=== PATIENT | female | born 1965 | race Caucasian/White ===

== ENCOUNTER 2016-09-16 22:01 | Day surgery (SDCO) | payer OTHER ==
[2016-09-16 23:11] LABS: BASOPHIL 0.4 % (0-2); EOSINOPHIL 1.4 % (0-5); HCT 40.8 % (37.0-47.0); HGB 14.1 g/dl (12.5-16.0); LYMPHOCYTE 30.1 % (15-48); MCH 33.7 pg (25.0-31.0); MCHC 34.6 g/dL (32.0-36.0); MCV 97.6 fL (78.0-100.0); MONOCYTE 4.1 % (0-12); MPV 11.7 fL (6.0-9.5); PLT 238 K/uL (150-400); RBC 4.18 M/uL (4.20-5.40)
[2016-09-16 23:20] LABS: INR 0.96 (0.9-1.2); PROTHROMBIN TIME 12.4 SECONDS (11.7-14.0); PTT 27.5 SECONDS (23.2-31.4)
[2016-09-16 23:22] LABS: D-DIMER 0.58 ug/mLFEU (0.00-0.41)
[2016-09-16 23:27] LABS: ALBUMIN 4.4 g/dL (3.5-5.0); BILIRUBIN - TOTAL 0.4 mg/dL (0.1-1.0); CREATININE 1.2 mg/dL (0.5-1.0); GLOBULIN (CALCULATION) 2.6 g/dL (2.2-4.2); MAGNESIUM 1.95 mg/dL (1.40-2.10); POTASSIUM 3.7 mmol/L (3.5-5.1)
[2016-09-16 23:30] LABS: CKMB 1.46 ng/mL (0.97-4.94); MYOGLOBIN 45 ng/mL (26-65); PRO-BNP 9 pg/mL (0-125); TROPONIN T < 0.010 ng/mL
[2016-09-17 03:26] LABS: CKMB 1.33 ng/mL (0.97-4.94); TROPONIN T < 0.010 ng/mL
[2016-09-17] MEDS ORDERED: SYNTHROID125 MCG PO (14:31)
[2016-09-17] MEDS ORDERED: NITROQUIK SL0.4 MG SL (14:32)
[2016-09-17] MEDS ORDERED: VITAMIN D50000 UNIT PO (14:32)
[2016-09-17] MEDS ORDERED: CYTOMEL25 MCG PO (14:33)
== END 2016-09-17 12:25 | disposition home or self-care (01) ==
LOC: FER 22:01 → FICU 09-17 03:50
PROVIDERS: Emergency Medicine Emergency Medical Services; ADMIT Internal Medicine
DX: R07.9 Chest pain, unspecified (principal); M79.7 Fibromyalgia; M17.12 Unilateral primary osteoarthritis, left knee; E03.9 Hypothyroidism, unspecified; Z90.89 Acquired absence of other organs; Z90.5 Acquired absence of kidney; Z98.1 Arthrodesis status; Z98.51 Tubal ligation status; Z88.1 Allergy status to other antibiotic agents; Z82.49 Family history of ischemic heart disease and other diseases of the circulatory system; Z79.899 Other long term (current) drug therapy; Z98.890 Other specified postprocedural states
CPT/HCPCS: 36415; 71010; 71275; 80053; 80061; 82550; 82553; 83690; 83735; 83874; 83880; 84484; 85025; 85379; 85610; 85730; 93005; 96372; G0378; J1885; J2270; J2405; Q9967

== ENCOUNTER 2020-09-19 14:40 | Emergency (ER) | payer OTHER, MEDICARE ==
[~2020-09-19 14:40] MED LIST: BENTYL10 MG PO; CYCLOBENZAPRINE10 MG PO; CYTOMEL25 MCG PO; NITROQUIK SL0.4 MG SL; SYNTHROID125 MCG PO; VITAMIN D50000 UNIT PO; ZOFRAN4 MG PO
[2020-09-19 15:33] LABS: BILIRUBIN NEGATIVE (NEGATIVE); BLOOD NEGATIVE Ery/uL (NEGATIVE); CLARITY CLEAR (CLEAR); COLOR YELLOW (YELLOW); GLUCOSE (U) 2+ mg/dL (NORMAL); LEUKOCYTES NEGATIVE Leu/uL (NEGATIVE); NITRITE NEGATIVE (NEGATIVE); PROTEIN NEGATIVE (NEGATIVE); SPECIFIC GRAVITY >=1.030 (1.001-1.030); UROBILINOGEN 0.2 mg/dL (0.2-1.0); pH 5.5 (5.0-9.0)
[2020-09-19 16:03] LABS: BASOPHIL 0.6 % (0-2); EOSINOPHIL 2.5 % (0-5); HCT 40.8 % (37.0-47.0); HGB 13.9 g/dl (12.5-16.0); LYMPHOCYTE 29.9 % (15-48); MCH 30.9 pg (25.0-31.0); MCHC 34.1 g/dL (32.0-36.0); MCV 90.7 fL (78.0-100.0); MPV 11.9 fL (6.0-9.5); NEUTROPHIL 61.7 % (41-80); NRBC 0; PLT 192 K/uL (150-400); RDW 12.7 % (11.5-14.0); WBC 6.4 K/uL (4.0-10.5)
[2020-09-19 16:37] LABS: CREATININE 0.81 mg/dL (0.51-0.95); POTASSIUM 4.2 mmol/L (3.5-5.1)
[2020-09-19] MEDS ORDERED: ANTIVERT25 MG PO (17:11)
== END 2020-09-19 17:20 | disposition home or self-care (01) ==
LOC: FER 14:40
PROVIDERS: Nurse Practitioner Family
DX: H81.10 Benign paroxysmal vertigo, unspecified ear (principal); E11.9 Type 2 diabetes mellitus without complications; Z90.5 Acquired absence of kidney; Z88.1 Allergy status to other antibiotic agents; Z79.84 Long term (current) use of oral hypoglycemic drugs
CPT/HCPCS: 36415; 80048; 81003; 85025; 99284

== ENCOUNTER 2021-01-18 15:27 | Emergency (ER) | payer OTHER, MEDICARE ==
[~2021-01-18 15:27] MED LIST changes: +ANTIVERT25 MG PO
[2021-01-18 16:18] LABS: EOSINOPHIL 2.1 % (0-5); HCT 42.3 % (37.0-47.0); HGB 14.4 g/dl (12.5-16.0); LYMPHOCYTE 26.8 % (15-48); MCH 31.1 pg (25.0-31.0); MCV 91.4 fL (78.0-100.0); MONOCYTE 5.2 % (0-12); MPV 12.1 fL (6.0-9.5); NEUTROPHIL 64.3 % (41-80); NRBC 0; PLT 183 K/uL (150-400); RBC 4.63 M/uL (4.20-5.40); RDW 12.8 % (11.5-14.0); WBC 5.2 K/uL (4.0-10.5)
[2021-01-18 16:37] LABS: BUN/CREAT RATIO (CALC) 19.5 RATIO; CREATININE 0.77 mg/dL (0.51-0.95); POTASSIUM 3.8 mmol/L (3.5-5.1)
[2021-01-18 16:40] LABS: BILIRUBIN NEGATIVE (NEGATIVE); BLOOD NEGATIVE Ery/uL (NEGATIVE); CLARITY CLEAR (CLEAR); COLOR YELLOW (YELLOW); GLUCOSE (U) 3+ mg/dL (NORMAL); LEUKOCYTES NEGATIVE Leu/uL (NEGATIVE); NITRITE NEGATIVE (NEGATIVE); PROTEIN TRACE (LOW) mg/dL (NEGATIVE); SPECIFIC GRAVITY >=1.030 (1.001-1.030); pH 5.5 (5.0-9.0)
[2021-01-18 16:47] LABS: BACTERIA TRACE
[2021-01-18 16:48] LABS: MUCOUS TRACE
== END 2021-01-18 19:00 | disposition home or self-care (01) ==
LOC: FER 15:27
PROVIDERS: Nurse Practitioner Family
DX: R73.9 Hyperglycemia, unspecified (principal); Z88.1 Allergy status to other antibiotic agents; Z79.84 Long term (current) use of oral hypoglycemic drugs; Z79.899 Other long term (current) drug therapy
CPT/HCPCS: 36415; 80048; 81001; 85025; 99284; J7030

== ENCOUNTER 2021-03-02 09:41 | Emergency (ER) | payer OTHER, MEDICARE ==
[2021-03-02 14:13] LABS: BASOPHIL 0 % (0-2); EOSINOPHIL 0 % (0-5); HCT 41.2 % (37.0-47.0); HGB 13.9 g/dl (12.5-16.0); LYMPHOCYTE 38.3 % (15-48); MCH 30.3 pg (25.0-31.0); MCHC 33.7 g/dL (32.0-36.0); MCV 89.8 fL (78.0-100.0); MONOCYTE 6.4 % (0-12); MPV 10.6 fL (6.0-9.5); NEUTROPHIL 54.7 % (41-80); NRBC 0; PLT 157 K/uL (150-400); RBC 4.59 M/uL (4.20-5.40); RDW 12.5 % (11.5-14.0); WBC 3.6 K/uL (4.0-10.5)
[2021-03-02 14:45] LABS: BUN/CREAT RATIO (CALC) 18.6 RATIO; CREATININE 0.7 mg/dL (0.51-0.95); POTASSIUM 3.3 mmol/L (3.5-5.1)
== END 2021-03-02 17:40 | disposition home or self-care (01) ==
LOC: FER 09:41
PROVIDERS: Nurse Practitioner Family
DX: U07.1 COVID-19 (principal); E11.9 Type 2 diabetes mellitus without complications; Z23 Encounter for immunization; Z88.1 Allergy status to other antibiotic agents
CPT/HCPCS: 36415; 71045; 80048; 85025; J1885; J2405; J7030; M0243; Q0244

== ENCOUNTER 2021-03-07 09:55 | Emergency (ER) | payer OTHER, MEDICARE ==
[2021-03-07 12:11] LABS: BASOPHIL 0.4 % (0-2); EOSINOPHIL 1.8 % (0-5); HCT 36.3 % (37.0-47.0); HGB 12.1 g/dl (12.5-16.0); LYMPHOCYTE 21.5 % (15-48); MCH 29.9 pg (25.0-31.0); MCHC 33.3 g/dL (32.0-36.0); MCV 89.6 fL (78.0-100.0); MONOCYTE 5.9 % (0-12); MPV 9.9 fL (6.0-9.5); NEUTROPHIL 69.4 % (41-80); NRBC 0; PLT 233 K/uL (150-400); RBC 4.05 M/uL (4.20-5.40); RDW 12.1 % (11.5-14.0); WBC 5.1 K/uL (4.0-10.5)
[2021-03-07 12:48] LABS: ALBUMIN 2.3 g/dL (3.4-5.0); BUN/CREAT RATIO (CALC) 9.1 RATIO; CREATININE 0.66 mg/dL (0.51-0.95); GLOBULIN (CALCULATION) 4.4 g/dL; POTASSIUM 2.9 mmol/L (3.5-5.1); TOTAL PROTEIN 6.7 g/dL (6.4-8.2)
[2021-03-07] MEDS ORDERED: VENTOLIN HFA IN18 GM INH (13:59)
[2021-03-07] MEDS ORDERED: K-TAB ER20 MEQ PO (14:03)
[2021-03-07] MEDS ORDERED: PREDNISONE 20MG20 MG PO (14:11)
== END 2021-03-07 14:30 | disposition home or self-care (01) ==
LOC: FER 09:55
PROVIDERS: Emergency Medicine
DX: U07.1 COVID-19 (principal); E87.6 Hypokalemia; E11.9 Type 2 diabetes mellitus without complications; Z88.1 Allergy status to other antibiotic agents; Z79.84 Long term (current) use of oral hypoglycemic drugs
CPT/HCPCS: 36415; 71046; 80053; 85025; J1100; J7030